=== PATIENT | female | born 1950 | race Caucasian/White ===

== ENCOUNTER 2016-09-22 13:45 | Day surgery (SDC) | payer OTHER ==
[~2016-09-22] VITALS: Ht 157.5 cm; Wt 121.6 kg
[2016-09-22 14:15] VITALS: Ht 157.5 cm; Wt 121.6 kg
[2016-09-22] MEDS ORDERED: ATEN-51 PO (14:24)
[2016-09-22] MEDS ORDERED: GLIP5TAB13 PO (14:24)
[2016-09-22] MEDS ORDERED: ASPI81TA3 PO (14:24)
[2016-09-22] MEDS ORDERED: SIMV5TAB50 PO (14:24)
[2016-09-22] MEDS ORDERED: ALLO100T PO (14:24)
[2016-09-22] MEDS ORDERED: METF500T4 PO (14:24)
[2016-09-22 14:28] LABS: BASOPHILS % 0.7 % (0.0-2.0); EOSINOPHILS # 0.1 10^3/ul (0.0-0.5); EOSINOPHILS % 1.7 % (0.0-7.0); HEMATOCRIT 42.6 % (37.0-47.0); HEMOGLOBIN 14.1 g/dl (12.0-16.0); LYMPHOCYTES % 28.5 % (15.0-51.0); MEAN CORPUSCULAR HEMOGLOBIN 28.9 pg (29.0-33.0); MEAN CORPUSCULAR HGB CONC 33.1 g/dl (32.0-37.0); MEAN CORPUSCULAR VOLUME 87.6 fl (82.0-101.0); MEAN PLATELET VOLUME 7.4 fl (7.4-10.4); MONOCYTE # 0.4 10^3/ul (0.3-0.9); MONOCYTES % 5.9 % (0.0-11.0); NEUTROPHIL # 4.4 10^3/ul (1.6-7.5); NEUTROPHILS % 63.2 % (39.0-77.0); PLATELET COUNT 282 10^3/UL (140-440); RED BLOOD COUNT 4.87 10^6/ul (4.20-5.40); RED CELL DISTRIBUTION WIDTH 13.6 % (11.5-14.5)
[2016-09-22 14:34] LABS: CONDITION 1
--- NOTE | 2016-09-22 14:34 | RADRPT ---
PROCEDURE: XR Chest. CLINICAL INDICATION: Chest pain TECHNIQUE: Single frontal view of the chest. COMPARISON: No priorchest radiograph. FINDINGS: Moderate left-sided pleural effusion with associated consolidation concerning for pneumonia. Superimposed prominence of the pulmonary vasculature may represent cardiopulmonary congestion. No pneumothorax. Cardiomegaly. No acute osseous abnormalities. Vascular calcifications of the aorta are present compatible with atherosclerosis. IMPRESSION: Moderate left-sided pleural effusion with associated consolidation concerning for pneumonia. Superimposed prominence of the pulmonary vasculature may represent cardiopulmonary congestion. RPTAT: AADD .Francis Norman MD, MD Date Time Electronically viewed and signed by .Francis Norman MD, MD on 09/22/2016 14:34 .B/
[2016-09-22 14:45] LABS: ALBUMIN 4.1 g/dl (3.3-4.9); POTASSIUM 3.9 mmol/L (3.5-5.1)
[2016-09-22 14:47] LABS: CREATININE 0.6 mg/dl (0.44-1.00)
[2016-09-22 14:48] LABS: ALBUMIN/GLOBULIN RATIO 1.07; BILIRUBIN,INDIRECT 0.5 mg/dl (0-1.1); BILIRUBIN,TOTAL 0.5 mg/dl (0.2-1.3); TOTAL PROTEIN 7.9 g/dl (6.1-8.1)
[2016-09-22 14:49] LABS: CALCIUM 9.6 mg/dl (8.4-10.2)
[2016-09-22] MEDS ORDERED: LEVOFLOXACIN 500 MG TAB PO ONE (15:00)
--- NOTE | 2016-09-23 06:04 | GILP ---
DATE OF PROCEDURE: 09/22/2016 PREOPERATIVE DIAGNOSIS: This patient was brought for colonoscopy. Unfortunately, she was complainin g of shortness of breath. The RN in the GI lab ordered an EKG and a chest x-ray which demonstrated left-sided consolidation with pleural effusion. Dr. Bel Tsang also examined, our anesthesiologi st, and felt this patient is not ready for any further sedation and intervention today. Thus, the p atient was given Levaquin 500 mg. I advised her to follow up with Dr. Cruz and we canceled the colo noscopy today. It will be rearranged after she clears the medical condition. Dictated By: GREGOYR FERNANDES Conf#: [id number] DID#: [id number] CC: Anthony;*EndCC*
--- NOTE | 2016-09-26 11:03 | RADRPT ---
Vent Rate: 90 bpm RR Interval: 0 msec MN Interval: 192 msec QRS Duration: 72 msec QT Interval: 332 msec QTC Interval: 406 msec P-R-T Hurley: 59 - 35 - 24 degrees Normal sinus rhythm Low voltage QRS Cannot rule out Anteroseptal infarct , age undetermined Abnormal ECG Electronically Signed By: Amadou Goodman [id number]
== END 2016-09-22 16:06 | disposition home or self-care (01) ==
LOC: GIL 13:45
PROVIDERS: ATTEND Internal Medicine
DX: Z12.11 Encounter for screening for malignant neoplasm of colon (principal); Z53.9 Procedure and treatment not carried out, unspecified reason; R06.02 Shortness of breath; I10 Essential (primary) hypertension; E11.9 Type 2 diabetes mellitus without complications; E78.5 Hyperlipidemia, unspecified
CPT/HCPCS: 71010; 80053; 82962; 83880; 85025; 85730; 93005